=== PATIENT | male | born 1955 | race Caucasian/White ===

== ENCOUNTER 2018-07-30 18:36 | Inpatient (IN) | payer BC, OTHER ==
[~2018-07-30] VITALS: Ht 188 cm; Wt 102.1 kg
--- NOTE | 2018-07-30 20:45 | NUR ---
Pre-admission note Patient is a 62 year old male here at [facility] for medically supervised ETOH and Opiate withdrawal. Patient is alert oriented x4, he is ambulatory with a steady gait. Patient is depressed, withdrawn and anxious. Patient is currently not presenting with any withdrawal symptoms; and denies being intoxicated. Patient reports using ETOH and [place]. Patient has a medical history of anxiety, Hypertension, and sleep apnea. Initial vital signs: BP 121/78, P96, RR18, O2 sat 96% on RA, T 98.0. Patient denies pain, breathing is even and unlabored. Will continue plan of care upon arrival on unit.
--- NOTE | 2018-07-30 21:00 | NUR ---
Admission Note Patient is a 62 year old male admitted today 07/30/2018 at 2055. Patient is AOx4, he is here at [facility] for medically supervised ETOH and Opiate withdrawal. Patient provided UA at intake office. Patient reports last using ETOH today 07/30/2018 at 1700 for 187 ml PO, and he also used Norcos today 07/30/2018 at 1200 for 15 mg (2 tablets of 7.5 mg) PO. Patient has a past medical history of anxiety, Hypertension, and sleep apnea. He is currently on Metoprolol, Niacin, Paroxetine, and low dose of aspirin. Medication has been reconciled on [employer]. Patient also uses a CPAP at home for the past 3 years at night to go to sleep. Patient denies being intoxicated and also denies withdrawal symptoms. Pt stated I will start to experience withdrawal symptoms in about 6 more hours. Patient seemed depressed, anxious, withdrawn and flat affect. CIWA and COWS assessment were deferred and will be further assessed when withdrawal symptoms are present. Patient is a full code and has no known allergies. Patient follows a regular diet at home. Patient reports his typical withdrawal symptoms consist of: "I get the shakes, weakness on legs, hot and cold flashes, and sweats." Patient denies seizures hx, cardiac induced complications, black outs, overdoses and withdrawal induced delirium. He has never been on a 5150 and does not smokes cigarettes. 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 Patient said he has been drinking since he was 23 years old. Patient stated his last drink was today 07/30/2018. 2) Jean: Patient stated he was using 4 tablets=30 mg (7.5 mg tablet) PO daily for 2 months. He started using 2 months ago. Patient stated that his last use was today 07/30/2018 at 1200. Patient stated that he has never been to a treatment center. He has tried to get sober on his own but has only been able to stay sober for 7 days and goes back to drinking, he has had very limited success. He doesn't remember his most recent period of sobriety. Patient is under the care of physician Dr. Gabino Fuentes in [facility]. Patient provided family hx of substance use; he stated that his father and brother were alcoholics. Patient support system is his and his son. Patient is currently employed as a water plant maintenance mechanic for the [employer] and his highest level of education is high school diploma. When the patient was asked whats going to be different this time, he stated "I am tired of feeling like crap and hiding it away, I want a normal life." Patient has never faced legal consequences as a result of his drug use, he stated Im a smart alcoholic I dont drink and drive, and I dont want to get to that point. Patient stated the reason he drink is due to boredom, and it is an escape from reality. Patient is 62" and weights 225 lbs per standing scale. Patient's skin is intact, dry, and warm to touch. Capillary refill is <3 seconds. PERRLA is present with pupils at 4 mm bilaterally. Lungs are clear to auscultation bilaterally. Abdomen is soft and non-distended and bowel sounds are present in all 4 quadrants. Patient reports that his last bowel movement was today 07/2018. Initial vital signs are as follows: BP 121/78, P96, RR18, O2 sat 96% on RA, T 98.0. Patient denies pain, breathing is even and unlabored. No signs and symptoms of respiratory distress. Patient stated he uses a CPAP for sleep and will follow up with MD for orders. Patient was oriented to unit at 2054. Patient was provided instructions regarding unit policies and rules. He provided a urine sample at intake office and blood work will be collected on unit. Fall and seizure precautions initiated and maintained. Safety measures in place, bed in low and locked position, side rails up x2, and call light within reach. Will continue to monitor.
[2018-07-30] MEDS ORDERED: SRC ALCOHOL WITHDRAWAL ADMITTING PROTOCOL XX PRN (22:45)
[2018-07-30] MEDS ORDERED: LOPERAMIDE HCL 2 MG CAPSULE PO PRN ×2 (22:45)
[2018-07-30] MEDS ORDERED: THIAMINE HCL 200 MG/2 ML VIAL IM ONE (22:45)
[2018-07-30] MEDS ORDERED: MAG HYDROX/AL HYDROX/SIMETH 30 ML LIQUID UDC PO PRN (22:45)
[2018-07-30] MEDS ORDERED: MAGNESIUM HYDROXIDE 30 ML LIQUID UDC PO PRN (22:45)
[2018-07-30] MEDS ORDERED: LORAZEPAM 1 MG TABLET PO PRN ×2 (22:45)
[2018-07-30] MEDS ORDERED: SRC OPIOID WITHDRAWAL ADMITTING PROTOCOL XX PRN (22:45)
[2018-07-30] MEDS ORDERED: LORAZEPAM 2 MG/1 ML VIAL IM PRN (22:45)
[2018-07-30] MEDS ORDERED: ONDANSETRON ODT 4 MG TAB.RAPDIS SL PRN (22:45)
[2018-07-30] MEDS ORDERED: MIRALAX 17 GM POWD.PACK PO PRN (22:45)
[2018-07-30] MEDS ORDERED: BUPRENORPHINE HCL 2 MG TAB.SUBL SL PRN (22:45)
[2018-07-30] MEDS ORDERED: ONDANSETRON 4 MG/2 ML VIAL IM PRN (22:45)
[2018-07-30] MEDS ORDERED: NIAC500T2 PO (22:49)
[2018-07-30] MEDS ORDERED: ASPI81TA31 PO (22:49)
[2018-07-30] MEDS ORDERED: METO1TAB39 PO (22:49)
[2018-07-30] MEDS ORDERED: PANT40TA4 PO (22:49)
[2018-07-30] MEDS ORDERED: PARO10TA86 PO (22:49)
[2018-07-30 23:02] LABS: BASOPHILS # (AUTO) 0.1 K/uL (0.0-8.0); BASOPHILS % (AUTO) 1.2 % (0.0-2.0); EOSINOPHILS # (AUTO) 0.1 K/uL (0.0-0.7); HEMATOCRIT 46.2 % (36.7-47.1); HEMOGLOBIN 16.5 g/dL (12.5-16.3); LYMPHOCYTES % (AUTO) 34.6 % (20.5-51.5); MEAN CORPUSCULAR HEMOGLOBIN 35.2 uug (23.8-33.4); MEAN CORPUSCULAR HGB CONC 36 g/dL (32.5-36.3); MEAN CORPUSCULAR VOLUME 98.7 fL (73.0-96.2); MONOCYTES # (AUTO) 0.7 K/uL (2.0-10.0); MONOCYTES % (AUTO) 8.2 % (0.0-11.0); NEUTROPHILS # (AUTO) 4.8 K/uL (1.8-8.9); PLATELET COUNT (AUTO) 204 K/uL (152-348); RED BLOOD CELL COUNT(AUTO) 4.68 MIL/uL (4.06-5.63); WHITE BLOOD COUNT (AUTO) 8.7 K/uL (3.6-10.2)
[2018-07-30 23:55] LABS: *AMPHETAMINE, URINE NEGATIVE (NEGATIVE); *BARBITURATE, URINE NEGATIVE (NEGATIVE); *CANNABINOID, URINE POSITIVE (NEGATIVE); *COCCAINE, URINE NEGATIVE (NEGATIVE); *OPIATE, URINE NEGATIVE (NEGATIVE); *PHENCYCLIDINE SCREEN,URINE NEGATIVE (NEGATIVE)
--- NOTE | 2018-07-31 | NUR ---
COWS and CIWA Deferred Patient noted in bed resting with eyes closed, breathing is even and unlabored. Per protocol COWS and CIWA is to be assessed while patient is awake. Will continue to monitor.
[2018-07-31 00:02] LABS: BILIRUBIN,TOTAL 2.7 mg/dL (0.2-1.0); CREATININE 1.4 mg/dL (0.6-1.3); MAGNESIUM 1.8 mg/dL (1.8-2.4); POTASSIUM 2.9 mmol/L (3.5-5.1); TOTAL PROTEIN, SERUM 8.4 g/dL (6.4-8.2)
[2018-07-31 00:13] LABS: THYROID STIMULATING HORMONE 1.791 mIU/mL (0.358-3.740)
[2018-07-31] MEDS ORDERED: POTASSIUM CHLORIDE 20 MEQ TAB.PRT.SR PO ONE ×2 (00:15→09:00)
--- NOTE | 2018-07-31 00:19 | NUR ---
PLACED PATIENT ON CPAP PER MD ORDERS AND PATIENTS REQUEST. PATIENT SAYS HE HAS OWN CPAP [facility] BUT CAN'T USE IT HERE. PATIENT SAYS HE'S ON 21% WHEN USING CPAP AT HOME. PATIENT IS ON A FULL FACE MASK. SETTINGS ARE: CPAP 8, 21%. NO SOB NOTED AT THIS TIME. PATIENT SAYS HE IS COMFORTABLE. WILL CONTINUE TO MONITOR.
[2018-07-31 04:00] VITALS: BP 126/82
--- NOTE | 2018-07-31 05:00 | NUR ---
K Critical Value and late Med administration Patient's potassium lab is showing 2.9; charge nurse and MD aware, new order for K-dur 40 MEQ was ordered. Administered late because patient was asleep. Patient tolerated well and will continue to monitor.
--- NOTE | 2018-07-31 07:16 | NUR ---
End of shift note Patient is 62 year old male admitted on 07/30/2018; he is here for medically supervised ETOH and Opiate withdrawal. Patient is on fall and seizure precautions. Orders are still pending for taper. Patient did not have any PRN during this shift. Patient was on a CPAP for sleep apnea, respiratory therapist came up and connected the patient to the CPAP. Patient had a critical lab value of K 2.9, was replaced with a onetime order of K-dur 40Meq. Patients CIWA and COWS were deferred because patient was asleep and was not presenting with no withdrawal symptoms. Patient slept for 7 hours and had a total intake of 500 ml. Patient voided x1 and had no bowel movements during this shift. Safety measures in place, bed locked in lowest position, side rails up x2, and call light within reach. Will endorse to day shift.
--- NOTE | 2018-07-31 07:19 | NUR ---
Start of shift Report received Patient is 62 year old male admitted on 07/30/2018 for medically supervised ETOH and Opiate withdrawal. Pt is currently not on a taper but has PRN medication in case of withdrawals, Pt is in room laying down with eyes closed resting with even non-labored breathing. Pt is on a CPAP machine for sleep apnea, Respiratory therapist came up and set up the machine. Pts CIWA and COWS was deferred last night due to pt being intoxicated. Pt potassium was low at 2.9 for which MD ordered 40meq of K-Dur. pt currently c/o anxiety shakes and sweats. encouraged pt to drink plenty of water to help with detox process. All safety measures in place will continue to monitor.
[2018-07-31 08:00] VITALS: BP 130/80
--- NOTE | 2018-07-31 08:00 | NUR ---
[facility] 14 COWS 14 Patient presents with lethargy,fatigue,fine hand tremors,restlessness and diaphoresis and irritability
[2018-07-31] MEDS ORDERED: TUBERCULIN,PURIF.PROT.DERIV. 5 TU/0.1 ML TEST ID ONE (09:00)
[2018-07-31] MEDS: THIAMINE HCL 100 MG TABLET PO SCH (09:41)
[2018-07-31] MEDS: FOLIC ACID 1 MG TABLET PO SCH (09:41)
[2018-07-31] MEDS: MULTIVITAMINS,THERAPEUTIC TABLET PO SCH (09:41)
--- NOTE | 2018-07-31 09:42 | NUR ---
PRN MEDICATION Pt c/o anxiety, chills, sweats, presented with flushed face, agitation, emotional volatility, and tremors. pts CIWA and COWS scores were 14 per MD order pt received PRN Ativan 1mg PO and Subutex 4mg Sub lingual. will continue to monitor pt.
--- NOTE | 2018-07-31 10:42 | NUR ---
PRN reassessment Medication effective pt reported a decrease in anxiety and agitation, presented to be more calm, pt no longer had a flushed face or notable tremors. CIWA and COWS scores decreased to 13
[2018-07-31 12:00] VITALS: BP 124/86
--- NOTE | 2018-07-31 12:00 | NUR ---
[facility] 11 COWS 12 Patient presents with lethargy,fatigue,fine hand tremors,restlessness and diaphoresis and irritability
[2018-07-31] MEDS: METOPROLOL 50 MG PO SCH (13:15)
[2018-07-31] MEDS ORDERED: 3 DAY TAPER BUPRENORPHINE -SERENITY PROTOCOL SL PRN (13:30)
[2018-07-31] MEDS ORDERED: 4 DAY TAPER OF LORAZEPAM -SERENITY PROTOCOL PO PRN (13:30)
[2018-07-31] MEDS: PANTOPRAZOLE SODIUM 40 MG TABLET.DR PO SCH (14:32)
[2018-07-31] MEDS: ASPIRIN 81 MG TAB.CHEW PO SCH ×2 (14:32→21:22)
[2018-07-31] MEDS: LORAZEPAM 1 MG TABLET PO SCH ×3 (14:32→21:21)
[2018-07-31] MEDS ORDERED: WITC1MED TP (14:34)
[2018-07-31 15:13] LABS: BILIRUBIN,TOTAL 2.3 mg/dL (0.2-1.0); CREATININE 1.1 mg/dL (0.6-1.3); MAGNESIUM 1.8 mg/dL (1.8-2.4); POTASSIUM 3.9 mmol/L (3.5-5.1); TOTAL PROTEIN, SERUM 7.5 g/dL (6.4-8.2)
--- NOTE | 2018-07-31 15:13 | NUR ---
Therapist prompted client to attend group therapy.
[2018-07-31] MEDS ORDERED: METO50TA7 PO (15:35)
[2018-07-31 16:00] VITALS: BP 128/87
[2018-07-31] MEDS: BUPRENORPHINE HCL 2 MG TAB.SUBL SL SCH ×2 (17:51→21:22)
--- NOTE | 2018-07-31 19:14 | NUR ---
End of shift Report given to car shifter nurse plan of care followed vital signs monitored closely Q4H. Withdrawal symptoms were closely monitored, medication given as scheduled. Initial CIWA 14 COWS 14. Pt encouraged adequate PO fluid intake as tolerated. Pt presented with sweats, flushed face, anxiety some agitation and yawning during the day. Pt received the scheduled taper medication as ordered. Pt received PRN Ativan 1mg and Subutex 4mg for withdrawals and COWS and CIWA score of 14. Last CIWA 11 COWS 12. Pt reported that the taper medications have been working well at controlling the withdrawal symptoms. Pt ate all of the meals, pt attended all groups and activities to learn new coping skills to prevent relapse. Pt denied any SI/HI. All safety measures in place, bed in lowest locked position, call light within reach. All needs met and attended.
--- NOTE | 2018-07-31 19:30 | NUR ---
Start of shift note Patient is a 62 year old male admitted on 07/30/2018. Patient id here for ETOH and Opiate withdrawal. Patient is on a 4 day Ativan and a 3 day Subutex taper. Patient is on fall and seizure precautions. Patients last CIWA was 11 and COWS was 12. Per endorsement patient had PRN Subutex and Ativan. Patient had a low K value and was given a onetime order of K-dur 40 Meq and K value is back to normal 3.9. Pt uses a CPAP at night. Upon rounds patient was noted in room watching tv, explained plan of care and medication administration and he verbalized understanding. Pt stated he did not want the CPAP for tonight because he was unable to sleep the night before and the face mask was not his size. Education was given about the CPAP and he refused it. Breathing is even and unlabored with no signs of acute distress. Safety measures in place bed locked in lowest position, side rails up x2, and call light within reach will continue to monitor.
[2018-07-31 20:00] VITALS: BP 132/82
--- NOTE | 2018-07-31 20:00 | NUR ---
CIWA and COWS Assessment Patient is presenting tremors, anxiety, agitation, and sweats. Patient CIWA is 12 and COWS is 13. Safety measures in place will continue to monitor.
[2018-07-31] MEDS: diphenhydrAMINE 50 MG CAPSULE PO PRN (21:22)
[2018-07-31] MEDS: HYDROXYZINE PAMOATE 25 MG CAPSULE PO PRN (21:22)
--- NOTE | 2018-07-31 21:22 | NUR ---
PRN Vistaril and Benadryl Patient is reporting anxiety and difficultly sleeping. Administered PRN Vistaril and Benadryl and pt tolerated well. Safety measures in place and will continue to monitor.
[2018-07-31] MEDS: NIACIN 500 MG PO SCH (21:23)
--- NOTE | 2018-07-31 22:22 | NUR ---
PRN Vistaril and Benadryl Reassessment Patient is resting in bed with eyes closed, and lights off. Medication is note to be effective. Breathing is even and unlabored. Safety measures in place and will continue to monitor.
[2018-08-01] VITALS: BP 128/79
--- NOTE | 2018-08-01 | NUR ---
CIWA and COWS Deferred Patient was in bed resting with eyes closed, breathing even and unlabored. Per protocol CIWA and COWS is to be assessed while patient is awake. Safety measures in place, will continue to monitor.
[2018-08-01 04:00] VITALS: BP 121/81
[2018-08-01 06:06] LABS: HEPATITIS B SURFACE AG Negative (Negative)
--- NOTE | 2018-08-01 07:30 | NUR ---
End of shift note Patient is a 62 year old male admitted on 07/30/2018. Patient id here for ETOH and Opiate withdrawal. Patient is on a 4 day Ativan and a 3 day Subutex taper. Patient is on fall and seizure precautions. Patients last CIWA was 12 and COWS was 13. Patient had PRN Vistaril and Benadryl during this shift. Pt did not use the CPAP during this shift, he refused it because he said the alarm and the pressure did not allow him to sleep well the night well. Patient slept for 10 hours and had a total intake of 1,000ml. Patient voided x1 and had no bowel movements. Breathing is even and unlabored with no signs of acute distress. Safety measures in place bed locked in lowest position, side rails up x2, and call light within reach. Will endorse to day shift.
--- NOTE | 2018-08-01 07:40 | NUR ---
START OF SHIFT Endorse rcvd from ongoing nurse, client is is room, lying on his L side, he sounds asleep, easy to awaken, RR 14 even, non-labored. Last CIWA @ 1999. PRN Vistaril 50mg PO for anxiety, Benadryl 50mg for insomnia, client slept 8hrs. [place] precautions. Call light within reach. Will continue to monitor. Addendum: 08/01/18 at 1739 by PORTIA LAZARO RN wrong client
--- NOTE | 2018-08-01 07:40 | NUR ---
START OF SHIFT Endorse rcvd from ongoing nurse, client is is room, he sounds asleep, easy to awaken, RR 14 even, non-labored. CPAP is at bedside. Last CIWA 13 @ 1999. PRN Vistaril 50mg PO for anxiety, Benadryl 50mg for insomnia, client slept 10hrs. [place] precautions. Call light within reach. Will continue to monitor.
--- NOTE | 2018-08-01 08:24 | NUR ---
Therapist prompted client to attend group therapy sessions.
[2018-08-01 08:30] VITALS: BP 153/94
[2018-08-01] MEDS: ACETAMINOPHEN 325 MG TABLET PO PRN (08:36)
[2018-08-01] MEDS: BUPRENORPHINE HCL 2 MG TAB.SUBL SL SCH ×3 (08:36→20:21)
[2018-08-01] MEDS: IBUPROFEN 600 MG TABLET PO PRN (08:36)
[2018-08-01] MEDS: PANTOPRAZOLE SODIUM 40 MG TABLET.DR PO SCH (08:37)
[2018-08-01] MEDS: THIAMINE HCL 100 MG TABLET PO SCH (08:37)
[2018-08-01] MEDS: MULTIVITAMINS,THERAPEUTIC TABLET PO SCH (08:37)
[2018-08-01] MEDS: LORAZEPAM 1 MG TABLET PO SCH ×3 (08:37→20:19)
[2018-08-01] MEDS: FOLIC ACID 1 MG TABLET PO SCH (08:37)
--- NOTE | 2018-08-01 08:37 | NUR ---
CIWA 12 / 13 & PRN Tylenol 650mg PO, Motrin 600mg PO for chronic low back pain 02/17. Client is a/o x 4, he presents with anxious mood, flat affect, avoidant gaze, flushed facial face, tremors, clammy skin, goosebump, and restlessness. Client reports anxiety, agitation, irritability, and fatigue. Schedule Ativan 1mg PO, Subutex 2mg SL administered. Call light within reach.
[2018-08-01] MEDS: [UNRECOGNIZED DRUG - OTHER] TOP PRN (08:38)
[2018-08-01] MEDS: CLONIDINE HCL 0.1 MG TABLET PO PRN (08:38)
[2018-08-01] MEDS: METOPROLOL 50 MG PO SCH (08:38)
--- NOTE | 2018-08-01 08:38 | NUR ---
PRN Hemorrhoid preparation H TOP PRN clonidine 0.1mg PO for anxiety, agitation mb increased BP 153/94. Call light within reach.
--- NOTE | 2018-08-01 09:37 | NUR ---
Reassess PRN Tylenol 650mg PO, Motrin 600mg, client reports slight relief from chronic low back pain 3/10, but tolerable. Call light within reach.
--- NOTE | 2018-08-01 09:38 | NUR ---
Reassess PRN clonidine 0.1mg, client reports slight relief from anxiety and agitation, BP 138/82. Call light within reach.
[2018-08-01 12:33] VITALS: BP 116/81
[2018-08-01] MEDS: METHOCARBAMOL 750 MG TABLET PO PRN (12:46)
--- NOTE | 2018-08-01 12:46 | NUR ---
CIWA 11 / COWS 12 & PRN Robaxin 750mg PO for myalgia on lower back. Client with clammy skin, tremulous, anxious, yawning, runny nose, and restless. He complains of chills, myalgia, nausea and fatigue. Will continue to monitor, support and encourage according to plan of care.
--- NOTE | 2018-08-01 13:46 | NUR ---
Reassess PRN Robaxin 750mg, client reports slight relief from myalgia on lower back. Call light within reach.
--- NOTE | 2018-08-01 15:36 | NUR ---
CIWA 11 / 12 Client continue to present with anxiety, irritability, clammy skin, tremulous, yawning, runny nose, restless, chills, myalgia, and fatigue. Schedule Subutex 2mg SL, Ativan 1mg PO administered. Call light within reach.
[2018-08-01 16:37] VITALS: BP 126/85
--- NOTE | 2018-08-01 19:06 | NUR ---
END OF SHIFT Endorse client to incoming nurse, client is in room, a/o x 4. Client continues to present with anxiety, irritability, clammy skin, tremulous, yawning, runny nose, restless, chills, myalgia, and fatigue. Client is on 2nd of 4 day Ativan / 3 day Subutex taper. Last CIWA 12 @ 1600. PRN medications administered and noted per protocol. Client attends 2/3 of group therapy. Client consumed 50-75% of meals. Adequate PO fluid intake 2375mL, void x 4, stool x 1. [place] precautions. Call light within reach.
[2018-08-01 20:00] VITALS: BP 125/79
--- NOTE | 2018-08-01 20:00 | NUR ---
Start of Shift Pt is a 62 year old male admitted for ETOH and opiate withdrawal. Pt is placed on a 4 day Ativan and 3 Subutex taper. Upon assessment, pt presents in room, in bed listening to music. Pt reports s/s of anxiety, irritability, restlessness, fatigue, muscle aches/joint aches, skin noted to be clammy, tremors felt upon touch, skin flushed - COWS 11 and CIWA 10. Medications are due, safety measures in place, will continue to monitor.
[2018-08-01] MEDS: NIACIN 500 MG PO SCH (20:19)
[2018-08-01] MEDS: ASPIRIN 81 MG TAB.CHEW PO SCH (20:20)
[2018-08-01] MEDS: HYDROXYZINE PAMOATE 25 MG CAPSULE PO PRN (23:11)
[2018-08-01] MEDS: diphenhydrAMINE 50 MG CAPSULE PO PRN (23:11)
--- NOTE | 2018-08-01 23:11 | NUR ---
PRN Administration Pt reports anxiety and requests sleeping aid. Vistaril 50mg PRN and Benadryl 50mg PRN administered. Safety measures in place, will continue to monitor.
[2018-08-02] VITALS: BP 134/89
--- NOTE | 2018-08-02 00:11 | NUR ---
PRN Reassessment Upon reassessment, pt is in room in bed, watching television. Pt states, "I'm just not tired yet, I just want to watch TV for now. needs met, safety measures in place, will continue to monitor.
--- NOTE | 2018-08-02 00:20 | NUR ---
COWS/CIWA Assessment COWS 10 & CIWA 11 - Pt reports feeling anxious, skin is clammy and flushed. pt is unable to remain still in bed, is seen "fixing the remote". Pt often walks out of room to walk in the [place] ways. Pt states, "Walking helps me not to think about everything". Clonidine 0.1mg PRN administered. Safety measures in place, will continue to monitor.
[2018-08-02] MEDS: CLONIDINE HCL 0.1 MG TABLET PO PRN ×2 (00:56→12:17)
--- NOTE | 2018-08-02 01:20 | NUR ---
Patient Reassessment PT is seen in bed, eyes closed noted to be sleeping, resp even/unlabored. Clonidine effective. Safety measures in place, will continue to monitor.
[2018-08-02 04:00] VITALS: BP 117/84
--- NOTE | 2018-08-02 04:00 | NUR ---
Confusion Episode - CIWA Assessment - Ativan x1 Administration Pt awoke from sleep, presented the nurses station and stated, "Why was my here yesterday?" Pt was redirected. Upon asking if pt was aware of where he was, pt attempted to remember, but then stated, "No, remind me. Why am I here". Pt was redirected regarding where he was, why he was in detox, and how many days he was at [facility]. Pt responded with, "Okay, if the ANASTASIA or ELVIRA ask, direct them to my room". CIWA 18, Ativan 2mg PO x1 administered. Safety measures in place, will continue to monitor.
[2018-08-02] MEDS ORDERED: LORAZEPAM 1 MG TABLET PO ONE ×2 (05:00→11:45)
--- NOTE | 2018-08-02 05:00 | NUR ---
Ativan 2mg x1 Reassessment Upon reassessment of Ativan 2mg x1, pt states, "Well I'm starting to remember certain things. I just can't believe I woke up so confused". CIWA 14. Pt reassured, comfort measures provided, needs met, safety measures in place, will continue to monitor.
--- NOTE | 2018-08-02 05:30 | NUR ---
Patient Update Pt was seen packing his clothing. When asked his reason behind packing his belongings, pt stated, "Im getting ready leave. They're going to pick me up in the afternoon". Pt was redirected and oriented to his plan of care at [facility]. Pt was reminded that he was not being discharged today and that treatment is still ongoing. Pt states, "My goodness, well that's more info then I had a moment ago". Pt apologized and stated, "Okay, I'm going to chill now. Pt is redirectable.
--- NOTE | 2018-08-02 07:05 | NUR ---
End of Shift Pt is a 62 year old male admitted for ETOH and opiate withdrawal. Pt is placed on a 4 day Ativan and 3 Subutex taper. During shift, pt presented with anxiety, irritability, restlessness, fatigue, muscle aches/joint aches, skin noted to be clammy, tremors felt upon touch, skin flushed - scheduled taper medications administered. Latest COWS 10 and CIWA 14. Vistaril PRN, Benadryl PRN and Clonidine PRN administered. At 0400, Ativan 2mg PO x1 administered for episode of confusion. Pt has episodes of confusion, but is redirectable. PT has CPAP and SCD pump in room. Amylase, Lipase, BMP and Liver function test to be drawn in AM. Pt slept for 3 hrs, intake of 2200 ml PO, and voids x4. Safety measures in place, endorsed to day shift nurse.
--- NOTE | 2018-08-02 07:30 | NUR ---
START OF SHIFT Endorse rcvd from ongoing nurse, client is in bed, he is a/o to name, place and situation. Client presents with anxious mood, flat affect, tremors felt, clammy skin, dilated pupil, flushed facial face, and difficulty concentrating. Client reports generalized body aches, sweats, inability to sleep, and fatigue. He stated, "Last night, I got confused, I was thinking that I was in my house and I tried to go into another patient's room looking for my bathroom." Client denies any visual/auditory or tactile hallucinations. Last CIWA . PRN Vistaril 50mg PO for anxiety, Benadryl 50mg PO for asleep, Clonidine 0.1mg PO for agitation. One time Ativan 2mg PO administered for episode of confusion. CPAP at bedside. AST 203, ALT 124, CN made aware. Client slept 3 hrs. Call light within reach.
[2018-08-02 08:01] LABS: BILIRUBIN,TOTAL 1.7 mg/dL (0.2-1.0); CREATININE 1.2 mg/dL (0.6-1.3); TOTAL PROTEIN, SERUM 7.3 g/dL (6.4-8.2)
[2018-08-02] MEDS: THIAMINE HCL 100 MG TABLET PO SCH (08:33)
[2018-08-02] MEDS: FOLIC ACID 1 MG TABLET PO SCH (08:33)
[2018-08-02] MEDS: PANTOPRAZOLE SODIUM 40 MG TABLET.DR PO SCH (08:33)
[2018-08-02] MEDS: METOPROLOL 50 MG PO SCH (08:33)
--- NOTE | 2018-08-02 08:33 | NUR ---
CIWA / 12 Client presents with anxious mood, flushed facial face, enlarged pupils, distant gaze, flat affect, tremors felt, and difficulty concentrating. Client is denied any visual/auditory/tactile hallucinations. Client is a/o to name, place and situation. Schedule Ativan 1mg PO, Subutex 2mg SL administered. Call light within reach.
[2018-08-02] MEDS: MULTIVITAMINS,THERAPEUTIC TABLET PO SCH (08:34)
[2018-08-02 08:39] VITALS: BP 125/86
[2018-08-02] MEDS ORDERED: LORAZEPAM 1 MG TABLET PO SCH (09:00)
[2018-08-02] MEDS ORDERED: BUPRENORPHINE HCL 2 MG TAB.SUBL SL SCH (09:00)
--- NOTE | 2018-08-02 10:55 | NUR ---
Therapist prompted client to attend group therapy.
[2018-08-02] MEDS: QUETIAPINE FUMARATE 25 MG TABLET PO PRN ×2 (12:02→20:07)
--- NOTE | 2018-08-02 12:02 | NUR ---
PRN Seroquel 50mg PO for agitation, m/b pacing, restlessness. Call light within reach.
[2018-08-02] MEDS: PAROXETINE HCL 10 MG TABLET PO SCH (12:17)
--- NOTE | 2018-08-02 12:17 | NUR ---
PRN Clonidine 0.1mg PO for BP 151/101. Call light within reach.
[2018-08-02 12:35] VITALS: BP 151/101
--- NOTE | 2018-08-02 12:37 | NUR ---
CIWA 18 / COWS 16 & PRN Ativan 2mg administered for inability to stay still, restlessness, anxiety, agitation, irritability, and difficulty concentrating. Client stated, "Tell the police stenographer that I'll be ready in a little bit, I'm putting my clothes in the bad." Client noted to repeatedly get out of his room and go into empty room next to his to look for his bathroom. Redirect client to present situation. Call light within reach. Sitter at bedside promoting safety.
[2018-08-02] MEDS ORDERED: LORAZEPAM 1 MG TABLET PO PRN (13:00)
[2018-08-02] MEDS ORDERED: 3 DAY TAPER OF LORAZEPAM -SERENITY PROTOCOL PO PRN (13:00)
--- NOTE | 2018-08-02 13:02 | NUR ---
Reassess PRN Seroquel 50mg, so significant change noted, client continues to be agitated and restless. Call light within reach.
--- NOTE | 2018-08-02 13:17 | NUR ---
Reassess PRN Clonidine 0.1mg, BP 137/88, P 97. Call light within reach.
--- NOTE | 2018-08-02 13:37 | NUR ---
Reassess PRN Ativan 2mg, client is in bed, eyes closed, sounds asleep, easy to awaken, RR 16 non-labored. Call light within reach. Sitter at bedside promoting safety.
[2018-08-02] MEDS: LORAZEPAM 1 MG TABLET PO SCH ×2 (14:17→20:07)
[2018-08-02] MEDS: METHOCARBAMOL 750 MG TABLET PO PRN (15:53)
[2018-08-02] MEDS: IBUPROFEN 600 MG TABLET PO PRN (15:53)
[2018-08-02] MEDS: LORAZEPAM 1 MG TABLET PO PRN ×3 (15:53→23:52)
--- NOTE | 2018-08-02 15:53 | NUR ---
[facility] 18 / COWS 16 Client is a/o person and situation, he presents with anxious mood, irritability, agitation, restlessness, tremors felt, emotional volatility, difficulty concentrating, and difficulty thinking clearly. Call light within reach. Sitter at bedside promoting safety.
--- NOTE | 2018-08-02 15:54 | NUR ---
PRN Ativan 2mg PO for anxiety, irritability, agitation, restlessness, tremors felt, emotional volatility, difficulty concentrating, and difficulty thinking clearly. PRN Robaxin 750mg PO & Motrin 600mg PO for myalgia and pain 6/10 on lower back. Call light within reach. Sitter at bedside promoting safety.
[2018-08-02 16:01] VITALS: BP 123/95
--- NOTE | 2018-08-02 16:54 | NUR ---
Reassess PRN Ativan 2mg, CIWA 15, slight difference noted on client's level of anxiety, irritability, agitation, restlessness, emotional volatility, difficulty concentrating, and difficulty thinking clearly. Reassess PRN Robaxin 750mg & Motrin 600m, client reports relief from myalgia and pain 0/10 on lower back. Call light within reach. Sitter at bedside promoting safety.
[2018-08-02] MEDS ORDERED: DIAZEPAM 10 MG TABLET PO ONE (18:15)
--- NOTE | 2018-08-02 18:18 | NUR ---
One time Valium 20mg PO administered for anxiety, agitation, restlessness, inability to stay still, emotional volatility, tremors, flushed facial skin, and difficulty concentrating. Client is a/o to person, place and situation. Call light within reach. Sitter at bedside promoting safety.
--- NOTE | 2018-08-02 19:25 | NUR ---
END OF SHIFT & Reassess One time Valium 20mg Endorse client to incoming nurse, client is in room, a/o to person and situation. Reassess of One time Valium 20mg, client continues to present with anxiety, agitation, restlessness, emotional volatility, tremors, flushed facial skin, and difficulty concentrating. On 1:1 sitter promoting safety. Client is on an extended 6 day Ativan taper (day 3rd) and 3 day Subutex taper. Last CI / 16 @ 1600. PRN medications administered and noted per protocol. Client attended 1/3 of group therapy. Client consumed 50-75% of meals. Adequate PO fluid intake 1700mL, void x 4, stool x 1. [place] precautions. Call light within reach.
--- NOTE | 2018-08-02 19:30 | NUR ---
START OF SHIFT Pt is a 62 y/o male admitted on 07/30/18 for ETOH and opiate withdrawal. Pt finished a 3 day Subutex taper and Ativan taper got extended to 5 days. Pt has PRN Ativan available. Last CIWA 18 and COWS 16 and PRN Clonidine, Motrin, Robaxin, Tylenol, Ativan 2 mg administered during day shift. Upon assessment pt presents with anxiety, agitation, confusion, disorientation to time, restlessness, emotional volatility, elevated HR, stuffy nose, sweats, stomach cramps, nausea, yawning, poor eye contact, unkempt room. Pt refusing CPAP for sleep apnea tonight and refusing Zofran for nausea. Pt also complaining of lower back pain 01/17. 1:1 sitter at bedside for safety. Medications due. Safety measures in place. Call light within reach. Will continue to monitor.
[2018-08-02 20:00] VITALS: BP 103/78
--- NOTE | 2018-08-02 20:00 | NUR ---
COWS/CIWA ASSESSMENT CIWA 18 and COWS 12. Pt presents with anxiety, agitation, confusion, disorientation to time, restlessness, emotional volatility, elevated HR, stuffy nose, sweats, stomach cramps, nausea, yawning, poor eye contact, unkempt room. Pt able to respond appropriately to questions. Pt denying A/V hallucinations upon assessment, but tech in room for 1:1 states that he talks to himself intermittently. Pt complaining of lower back pain especially upon exertion. Pt refusing Zofran or Bentyl for GI discomfort and states, "It's not that bad."
[2018-08-02] MEDS: ACETAMINOPHEN 325 MG TABLET PO PRN (20:07)
[2018-08-02] MEDS: NIACIN 500 MG PO SCH (20:07)
[2018-08-02] MEDS: ASPIRIN 81 MG TAB.CHEW PO SCH (20:07)
--- NOTE | 2018-08-02 20:07 | NUR ---
PRN SEROQUEL AND TYLENOL ADMINISTRATION Pt presents with anxiety, agitation, and requests sleep aid. Pt also complains of back pain 5/10. Safety measures in place. 1:1 sitter at bedside. Will continue to monitor.
--- NOTE | 2018-08-02 21:07 | NUR ---
PRN SEROQUEL AND TYLENOL REASSESSMENT Pt has persistent anxiety and is not asleep. Pt laying in bed and presents with restlessness. Pt has intermittent mumbling. Pt reports that his back still hurts "4-5 out of ten." Safety measures in place. 1:1 sitter at bedside. Will continue to monitor.
--- NOTE | 2018-08-02 21:37 | NUR ---
PRN ATIVAN 2 MG ADMINISTRATION CIWA 21. Pt presents with disorientation to place, time, and situation. Pt is confused, anxious, restless, difficulty sitting still. Pt is difficult to redirect. Pt stated, "I need to go to work right now," "I need to call [employer]," and "Who took me here in the camper?" Tech in room stated that he frequently gets out of bed, walks around room, was talking to his mother, and is frequently trying to leave room to go to work. Safety measures in place. Will continue to monitor.
--- NOTE | 2018-08-02 22:37 | NUR ---
PRN ATIVAN 2 MG REASSESSMENT Pt laying in bed with eyes closed, pt sleeping intermittently. Safety measures in place. 1:1 sitter at bedside. Will continue to monitor.
--- NOTE | 2018-08-02 23:52 | NUR ---
PRN ATIVAN 2 MG ADMINISTRATION CIWA 21. Pt presents with anxiety, increased agitation, restlessness, difficulty sitting still, emotional volatility, disorientation, confusion, intermittent auditory hallucinations. Pt frequently stating "Where am I?" and "I need to know what's going on," despite frequent orientation. Pt making frequent attempts to get out of bed and room. 1:1 sitter with patient. Will continue to monitor. Addendum: 08/03/18 at 0423 by NATY HALL RN Additional: COWS 12
[2018-08-03] VITALS: BP 121/77
--- NOTE | 2018-08-03 00:10 | NUR ---
PSYCHIATRIST COMMUNICATION Charge nurse notified psychiatrist about update in patient condition regarding increased agitation, restlessness, hallucinations and disorientation. One time order for IM Zpyrexa 5 mg ordered and PRN Seroquel 50 mg order changed from Q8H to Q6H.
[2018-08-03] MEDS ORDERED: OLANZAPINE 10 MG VIAL IM ONE (00:15)
--- NOTE | 2018-08-03 00:52 | NUR ---
PRN ATIVAN 2 MG REASSESSMENT CIWA 19. Pt presents with persistent anxiety, agitation, restlessness, confusion, and disorientation. Pt also has paranoid thoughts. Pt stating, "Where is my mom?" and "Where is [place]?" despite consistent reorientation. When asking patient a question he frequently stated, "Just give me a minute," and "For your own safety, I need you all to just give me a second." Addendum: 08/03/18 at 0117 by NATY HALL RN 1:1 sitter with patient. Will continue to monitor.
[2018-08-03] MEDS: QUETIAPINE FUMARATE 25 MG TABLET PO PRN ×2 (01:48→19:45)
--- NOTE | 2018-08-03 01:48 | NUR ---
PRN SEROQUEL ADMINISTRATION Pt presents with agitation, restlessness, inability to stay asleep. Pt continues to present with confusion and disorientation. Pt getting out of bed and walking out of room. Pt asking where his family members are. 1:1 sitter at bedside. Will continue to monitor.
--- NOTE | 2018-08-03 02:48 | NUR ---
PRN SEROQUEL REASSESSMENT Pt laying in bed with eyes closed, sleeping intermittently. Medication noted effective at this time. 1:1 sitter at bedside. Respirations even and unlabored. Safety measures in place. Call light within reach. Will continue to monitor.
[2018-08-03 04:00] VITALS: BP 117/74
--- NOTE | 2018-08-03 04:00 | NUR ---
COWS/CIWA ASSESSMENT COWS 10 AND CIWA 18. Pt presents with anxiety, agitation, restlessness, sweats, confusion, and disorientation. Pt sleeping intermittently. Safety measures in place. 1:1 sitter at bedside.
--- NOTE | 2018-08-03 07:08 | NUR ---
END OF SHIFT Pt is a 62 y/o male admitted on 07/30/18 for ETOH and opiate withdrawal. Pt finished a 3 day Subutex taper and Ativan taper got extended to 5 days. Pt has PRN Ativan available. Pt presented with anxiety, agitation, confusion, disorientation to time, auditory hallucinations, restlessness, emotional volatility, elevated HR, stuffy nose, sweats, stomach cramps, nausea, yawning, poor eye contact, poor concentration, and unkempt room. Scheduled medications and PRN Ativan 2 mg x 2, Seroquel 50 mg x 2, and Tylenol administered. Psychiatrist called when patient condition worsened; One time order for Zyprexa IM 5 mg and changed PRN Seroquel 50 mg from Q8H to Q6H. Last COWS 10 and CIWA 18 at 0400. Pt slept 4 hours. Intake 2000 ml, void x 2, stool x 2. Safety measures in place. Call light within reach. Will continue to monitor.
--- NOTE | 2018-08-03 07:30 | NUR ---
Start of shift note; Received report from night nurse. Patient is a 62 year old male admitted on 07/30/18 for ETOH/Opiate withdrawal. Patient completed Subutex taper without any adverse reaction. Patient remains on Ativan taper for ETOH withdrawal. Patient is awake, alert to name and date of , patient is unaware of location, time, date and situation. Patient is currently on 1:1 supervision for safety due to confusion. Patient received PRN Seroquel, Ativan, Seroquel and Zyprexa last night, noted to be effective. Per truss maker report patient had episodes of auditory disturbances. MD was notified. Vital signs remained WNL. Patient has a history of sleep apnea but patient refused to put on his CPAP machine, SPO2 of 95% on room air while asleep. HOB kept slightly elevated. All safety measures secured. Will continue to monitor patient.
[2018-08-03 08:00] VITALS: BP 124/81
--- NOTE | 2018-08-03 08:00 | NUR ---
COWS/CIWA Assessment; Patient is awake, alert to name and date of , patient is unaware of location, time, date and situation. Patient current COWS score is 10 and CIWA of 17 manifested by anxiety, agitation, tremors, diaphoresis, generalized discomfort, muscle aches, stomach cramps, auditory disturbances. Patient remains on 1:1 super for safety. Will closely monitor patient.
[2018-08-03] MEDS: LORAZEPAM 1 MG TABLET PO SCH ×2 (08:23→20:17)
[2018-08-03] MEDS: PANTOPRAZOLE SODIUM 40 MG TABLET.DR PO SCH (08:23)
[2018-08-03] MEDS: MULTIVITAMINS,THERAPEUTIC TABLET PO SCH (08:23)
[2018-08-03] MEDS: THIAMINE HCL 100 MG TABLET PO SCH (08:23)
[2018-08-03] MEDS: FOLIC ACID 1 MG TABLET PO SCH (08:23)
[2018-08-03] MEDS: METOPROLOL 50 MG PO SCH (08:24)
[2018-08-03] MEDS: PAROXETINE HCL 10 MG TABLET PO SCH (08:24)
[2018-08-03] MEDS ORDERED: LORAZEPAM 1 MG TABLET PO SCH (09:00)
[2018-08-03] MEDS ORDERED: LORAZEPAM 1 MG TABLET PO PRN ×3 (11:00→13:00)
[2018-08-03] MEDS: LORAZEPAM 1 MG TABLET PO PRN ×2 (11:17→17:13)
--- NOTE | 2018-08-03 11:17 | NUR ---
PRN medication; Patient's CIWA score is 17 manifested by anxiety, agitation, confusion, tremors, diaphoresis, stomach cramps, generalized discomfort. PRN Ativan 2mg PO for CIWA >16. Will continue to monitor effectiveness of medication.
[2018-08-03 12:00] VITALS: BP 119/79
--- NOTE | 2018-08-03 12:00 | NUR ---
COWS/CIWA Assessment; Patient is awake, alert to name and date of , patient is unaware of location, time, date and situation. Patient current COWS score is 10 and CIWA of 15 manifested by anxiety, agitation, tremors, diaphoresis, generalized discomfort, muscle aches, stomach cramps, auditory disturbances. Patient remains on 1:1 super for safety. Will closely monitor patient.
--- NOTE | 2018-08-03 12:17 | NUR ---
Re-assessment; Patient's current CIWA score decreased to 15 from 17. PRN Ativan noted to be effective.
[2018-08-03] MEDS: GUAIFENESIN/DEXTROMETHORPHAN 5 ML UDC PO PRN ×2 (14:07→21:54)
--- NOTE | 2018-08-03 14:07 | NUR ---
PRN medication; Patient reported cough, HOB kept elevated to prevent aspiration. PRN Robitussin DM 10 ml given for cough. Will continue to monitor patient. Sitter remained at bedside for safety.
--- NOTE | 2018-08-03 15:07 | NUR ---
Re-assessment; Patient reported improvement of cough. PRN medication is effective.
[2018-08-03 16:00] VITALS: BP 128/84
--- NOTE | 2018-08-03 17:13 | NUR ---
PRN/COWS/CIWA Assessment; Patient is awake, alert to name and date of , patient is unaware of location, time, date and situation. Re-oriented and re-directed patient as needed. Patient current COWS score is 10 and CIWA of 18 manifested by anxiety, agitation, tremors, diaphoresis, generalized discomfort, muscle aches, stomach cramps, confusion, difficulty concentrating, avoidant to eye contact. Patient remains on 1:1 super for safety. PRN Ativan 2 mg PO given for CIWA >16. Will closely monitor patient.
--- NOTE | 2018-08-03 18:13 | NUR ---
Re-assessment; Patient's CIWA score has improved, current CIWA score is 14, PRN Ativan noted to be effective.
--- NOTE | 2018-08-03 18:25 | NUR ---
End of shift note; Patient is awake, alert to name and date of , patient is disoriented to location, time, date and situation, redirected as needed. Patient remained cooperative and compliant to medication regime. Patient's last COWS score is 10 and CIWA of 14 manifested by anxiety, agitation, tremors, diaphoresis, generalized discomfort, muscle aches, stomach cramps. Patient remains on 1:1 super for safety. Patient received PRN 2 doses of Ativan for CIWA >16 and to prevent delirium tremens, noted to be effective. Patient also received PRN Robitussin DM for cough, noted to be effective. Awaiting for chest X-ray result to rule out pneumonia. All safety measures secured. Met all needs.
--- NOTE | 2018-08-03 19:15 | NUR ---
Start of shift note Received report from day shift nurse. Pt is a 62 yo male, A+Ox3, presenting to [facility] for medically supervised ETOH/Opiate withdrawal. Pt is on 1:1 sitter for observation of unsteady gait and confusion. Pt noted with confusion, anxiety, restlessness, and agitation. Pt has HX of HTN, anxiety, sleep apnea, and chronic back pain which will be monitored during shift. Pt is on 5 day Ativan and 3 day Subutex tapers, tolerated well. Respirations even and unlabored. Will continue to monitor.
[2018-08-03] MEDS: METHOCARBAMOL 750 MG TABLET PO PRN (19:45)
--- NOTE | 2018-08-03 19:45 | NUR ---
PRN Robaxin and Seroquel Pt c/o generalized muscle aches 8/10 and noted with mild agitation/psychosis. PRN Robaxin and Seroquel given and tolerated well. Will reassess within 1 HR. Will continue to monitor.
[2018-08-03 20:11] VITALS: BP 124/88
[2018-08-03] MEDS: ASPIRIN 81 MG TAB.CHEW PO SCH (20:17)
[2018-08-03] MEDS: NIACIN 500 MG PO SCH (20:17)
--- NOTE | 2018-08-03 20:40 | NUR ---
PRN Robaxin and Seroquel reassessment Medications effective. Pt expresses reduction of muscle aches to 4/10. No s/s of ASE noted at this time. Respirations even and unlabored. Will continue to monitor.
--- NOTE | 2018-08-03 21:57 | NUR ---
PRN Robitussin DM Pt noted with cough. PRN Robitussin DM given and tolerated well. Will reassess within 1 HR. Will continue to monitor.
--- NOTE | 2018-08-03 22:52 | NUR ---
PRN Robitussin DM Reassessment Medication effective. Pt is resting well in bed at this time. No s/s of ASE noted at this time. Respirations even and unlabored. Will continue to monitor.
--- NOTE | 2018-08-04 00:56 | NUR ---
V/S refused and COWS and CIWA Assessment deferred for sleep. Respirations even and unlabored. Will continue to monitor.
--- NOTE | 2018-08-04 04:55 | NUR ---
V/S refused and COWS and CIWA Assessment deferred for sleep. Respirations even and unlabored. Will continue to monitor.
--- NOTE | 2018-08-04 07:00 | NUR ---
End of shift note Pt was continuously noted with confusion, anxiety, agitation, and restlessness. Pt remains on 1:1 sitter for confusion and unsteady gait. Pt remained in room for majority of shift except to get food from kitchen. Pt remained compliant and cooperative with all aspects of treatment. Pt was given PRN Robaxin and Seroquel @194. Pt remains on 5 day Ativan and 3 day Subutex tapers, tolerated well. Pt slept for a total of 8 HRS. Last COWS: 9 and CIWA: 15 @2010. Respirations even and unlabored. Will endorse to day shift nurse.
[2018-08-04 08:00] VITALS: BP 139/74
--- NOTE | 2018-08-04 08:00 | NUR ---
Start of Shift Notes/CIWA Assessment: Received endorsement from night nurse. Patient is a 62 year old male admitted for ETOH/opiate withdrawal who was placed on a 3-day Subutex taper which he completed and continues to be on 5-day Ativan taper that was extended. He is currently on a 1:1 at this time due to intermittent confusion and hallucinations. Per night report, patient was given PRN Seroquel, Robitussin and Robaxin during the night. Last COWS 9/CIWA 15. Slept for a total of 8 hours. Patient was seen in his room. Appears drowsy upon waking. Alert and oriented x 2. Disoriented to time and place. Patient states he is "home and the year is 1987." He was noted with gross tremors, mild photosensitivity and sensitivity to sound. CIWA 15 upon this assessment. MD Sanchez in the unit and notified. Educated patient on his current plan of care for the day and his medication regimen. Encouraged oral fluid intake and encouraged group participation to learn new skills to prevent relapse. All needs met and attended. 1:1 within arm's reach. Will continue to monitor and medicate as ordered. Addendum: 08/04/18 at 0859 by LAKISHA GRIMALDO LVN COWS Assessment: Patient's COWS 6.
[2018-08-04] MEDS: MULTIVITAMINS,THERAPEUTIC TABLET PO SCH (08:33)
[2018-08-04] MEDS: FOLIC ACID 1 MG TABLET PO SCH (08:33)
[2018-08-04] MEDS: PANTOPRAZOLE SODIUM 40 MG TABLET.DR PO SCH (08:33)
[2018-08-04] MEDS: THIAMINE HCL 100 MG TABLET PO SCH (08:33)
[2018-08-04] MEDS: METOPROLOL 50 MG PO SCH (08:37)
[2018-08-04] MEDS: PAROXETINE HCL 10 MG TABLET PO SCH (08:37)
[2018-08-04] MEDS ORDERED: LORAZEPAM 1 MG TABLET PO SCH (09:00)
[2018-08-04 11:59] LABS: BILIRUBIN,DIRECT 0.8 mg/dL (0.0-0.2); BILIRUBIN,TOTAL 1.4 mg/dL (0.2-1.0); CREATININE 0.9 mg/dL (0.6-1.3); POTASSIUM 3.7 mmol/L (3.5-5.1); TOTAL PROTEIN, SERUM 6.8 g/dL (6.4-8.2)
[2018-08-04 12:00] VITALS: BP 127/89
[2018-08-04] MEDS: LORAZEPAM 1 MG TABLET PO PRN ×3 (12:21→20:54)
--- NOTE | 2018-08-04 12:21 | NUR ---
CIWA/COWS Assessment/Ativan 2 mg PO given: COWS 6, CIWA 16, patient continues to exhibit s/s of withdrawal m/b tachycardia, confusion, disorientation, unable to recall name of current president, current year and city. He was also noted with gross tremors, sweats, facial flushing, piloerection of the skin and complains of anxiety and chills and hot flashes. Medicated patient with Ativan 2 mg PO per CIWA score. Notified Dr. Sanchez. Per , continue with current orders.
--- NOTE | 2018-08-04 13:28 | NUR ---
Re-assessment: Ativan 2 mg Patient appears more calm at this time. He continues to complain of anxiety but tolerable. No chest tightness noted. Able to eat his lunch. Less agitation noted. PRN Ativan 2 mg PO effective.
--- NOTE | 2018-08-04 15:15 | NUR ---
Communication: made aware that PRN Ativan orders . New order to renew 1mg Ativan for CIWA 5-15 and 2mg Ativan for CIWA 16+. Orders noted and carried out.
[2018-08-04] MEDS ORDERED: LORAZEPAM 1 MG TABLET PO PRN (15:30)
[2018-08-04 16:00] VITALS: BP 97/84
--- NOTE | 2018-08-04 16:16 | NUR ---
COWS/CIWA Assessment/Ativan 1 mg PO given: COWS 6, CIWA 12, patient continues to present with cloudiness in his mentation, unable to do additions, but able to recall the president, his name, date of , city and hospital he is currently in. He was also noted with unsteady gait, gross tremors, requiring stand by assistance while ambulating, he was noted with anxiety, agitation and generalized discomfort. Medicated patient with Ativan 1 mg PO per CIWA score. Will monitor for effectiveness.
--- NOTE | 2018-08-04 17:16 | NUR ---
Re-assessment: Ativan 1 mg/CIWA Assessment: CIWA 10, patient continues to present with s/s of withdrawal m/b cloudiness in mentation, but able to recall current year, location but still unable to do additions. Gross tremors still noted with facial flushing. Ativan 1 mg PO effective.
--- NOTE | 2018-08-04 19:14 | NUR ---
End of Shift Notes: Patient completed his modified 5-day Ativan taper as ordered to manage symptoms related to ETOH withdrawal and opiate withdrawal. He completed his 3-day Subutex taper as ordered. No adverse reactions noted. Patient continues to be on PRN Ativan as ordered. VS monitored closely. No significant abnormalities noted. Patient is on Metoprolol as ordered. Withdrawal symptoms were closely monitored. Initial COWS 6/CIWA 15, patient presented with confusion, disorientation, photo sensitivity, sound sensitivity, paresthesia, gross tremors, anxiety, agitation, chills, hot flashes and generalized discomfort. Last COWS 11/CIWA 9. He continues to be on 1:1 for hallucination and confusion. Reality orientation provided. Seen by MD Sanchez today. Patient will be on PRN Ativan. At 1200, patients CIWA was at 16, requiring patient to be medicated with Ativan 2 mg PO as ordered. He was unable to attend group and activities due to his withdrawal symptoms. Appetite fair. Stayed in his room for most of the shift. All needs met and attended. Will continue to monitor closely.
--- NOTE | 2018-08-04 19:30 | NUR ---
START OF SHIFT Patient is a 62-year-old male admitted on 07/30/18 for ETOH and opiate withdrawal. Patient has completed a 5-day Ativan taper and a 3-day Subutex taper, tolerated well. Patients last COWS was 6 and last CIWA was 10, per endorsement. Patient currently has PRN Ativan available for further signs and symptoms of withdrawal. Patient received PRN Ativan 2mg PO and PRN Ativan 1mg PO, each once today; both noted to be effective. Upon assessment, patient remains on 1-to-1 for safety, due to unsteady gait and confusion/disorientation. Patient is oriented to his name and date, however, patient forgets the current year, his current situation/location, and other details of his circumstance. Patient is redirectable and requires constant re-orientation. Patient complains of chronic lower back pain and anxiety. Patient appears disorganized and his room is odorous. Patient is on fall and seizure precautions with not previous history of seizure. Safety measures in place, side rails up x2, bed locked in low position, 1-to-1 at bedside, call light within reach. Will continue to monitor.
[2018-08-04 20:00] VITALS: BP 123/84
--- NOTE | 2018-08-04 20:00 | NUR ---
COWS 6, CIWA 14 Patient is anxious, restless and fidgety, disoriented and confused. Patient is tremulous and complains of mild headache. Patient also has transient A/V hallucinations about his dog being on the unit or his brothers children "running around." Patient is forgetful but cooperative and mild mannered. Current COWS score is 6 and CIWA is 14. SN to administer medications as ordered. 1:1 at bedside for safety.
[2018-08-04] MEDS: METHOCARBAMOL 750 MG TABLET PO PRN (20:54)
[2018-08-04] MEDS: NIACIN 500 MG PO SCH (20:54)
[2018-08-04] MEDS: ASPIRIN 81 MG TAB.CHEW PO SCH (20:54)
[2018-08-04] MEDS: IBUPROFEN 600 MG TABLET PO PRN (20:54)
--- NOTE | 2018-08-04 20:54 | NUR ---
PRN ATIVAN 1mg, ROBAXIN & MOTRIN Patient report mild headache, lower back pain is 6/10 on pain scale. PRN Motrin and Robaxin given PO for headache and lower back pain. PRN Ativan 1mg given PO for CIWA between 5-15. Safety measures in place, side rails up x2, bed locked in low position, call light within reach, 1:1 at bedside. Will monitor for effectiveness.
[2018-08-04] MEDS: GUAIFENESIN/DEXTROMETHORPHAN 5 ML UDC PO PRN (20:59)
--- NOTE | 2018-08-04 20:59 | NUR ---
PRN CALLIESIN Patient has an unproductive cough at this time, he states, "I'll take the cough medicine now so I won't be coughing during the night." PRN Robitussin 10mL given as ordered for cough. Safety measures in place, call light within reach, 1:1 at bedside. Will monitor for effectiveness.
[2018-08-04] MEDS: QUETIAPINE FUMARATE 25 MG TABLET PO PRN (21:06)
--- NOTE | 2018-08-04 21:06 | NUR ---
PRN SEROQUEL Patient appears agitated and has begun to walk around the unit with his walker and 1:1 "looking for my dog." Patient believes that his dog is on the unit and insists upon finding his dog in one of the many rooms on the floor. Patient is not aggressive or combative at this time, only disoriented and confused. PRN Seroquel 50mg given PO. Patient was re-directed to his room, he did not argue or attempt to continue searching for his dog. Safety measures in place, side rails up x2, bed locked in low position, call light within reach, 1:1 at bedside. Will monitor for effectiveness.
--- NOTE | 2018-08-04 21:54 | NUR ---
PRN ATIVAN 1mg, ROBAXIN & MOTRIN REASSESSMENT Patient reports that headache has improved, lower back pain has also decreased. PRN Motrin and Robaxin noted to be effective. Patient continues to have anxiety, restlessness, and transient hallucinations. Patient is disoriented and requires constant re-orientation. CIWA is 12 upon reassessment of PRN Ativan 1mg. Safety measures in place, 1:1 at bedside. Will continue to monitor.
--- NOTE | 2018-08-04 21:59 | NUR ---
PRN ROBITUSSIN REASSESSMENT Patient has reports less frequent coughing. PRN Robitussin noted to be effective. Safety measures in place, side rails up x2, bed locked in low position, call light within reach, 1:1 at bedside. Will continue to monitor.
--- NOTE | 2018-08-04 22:06 | NUR ---
PRN SEROQUEL REASSESSMENT Patient appears less agitated and is resting quietly in bed watching television. PRN Seroquel noted to be effective. Safety measures in place, side rails up x2, bed locked in low position, call light within reach, 1:1 at bedside. Will continue to monitor.
[2018-08-05] VITALS: BP 116/79
--- NOTE | 2018-08-05 00:30 | NUR ---
COWS 6, CIWA 12 Patient sleeps intermittently and wakes for 10 minute intervals. Patient remains confused and disoriented but is able to answer questions appropriately at times. Patient verbalizes feeling anxious and restless when he is awake. Patient is tremulous and has transient A/V hallucinations. Current COWS is 6, current CIWA is 12. SN to administer PRN Ativan as ordered. Safety measures in place, 1:1 at bedside.
[2018-08-05] MEDS: LORAZEPAM 1 MG TABLET PO PRN ×2 (00:44→09:22)
--- NOTE | 2018-08-05 00:44 | NUR ---
PRN ATIVAN 1mg Patient has a CIWA of 12; PRN Ativan 1mg given PO for CIWA between 5-15. Safety measures in place, 1:1 at bedside, side rails up x2, bed locked in low position, call light within reach. Will monitor for effectiveness.
--- NOTE | 2018-08-05 01:44 | NUR ---
PRN ATIVAN REASSESSMENT Patient is asleep at this time, respirations even and unlabored. Unable to reassess PRN Ativan at this time. Safety measures in place, side rails up x2, bed locked in low position, 1:1 at bedside, call light within reach. Will continue to monitor.
--- NOTE | 2018-08-05 04:00 | NUR ---
VITALS REFUSED, COWS & CIWA DEFERRED Vitals refused at this time, COWS and CIWA deferred due to patient sleeping; to be assessed and scored while patient is awake. Respirations even and unlabored 16/min. Safety measures in place, 1:1 at bedside, call light within reach. Will continue to monitor.
--- NOTE | 2018-08-05 07:00 | NUR ---
END OF SHIFT Patient is a 62-year-old male admitted on 07/30/18 for ETOH and opiate withdrawal. Patient has completed a 5-day Ativan taper and a 3-day Subutex taper, tolerated well. Patients last COWS was 6 and last CIWA was 12. Patient has PRN Ativan on hand for further signs and symptoms of withdrawal. Patient received PRN Ativan 1mg PO x2 during the shift, noted to be effective. Patient received PRN Robaxin, Motrin, Robitussin, and Seroquel; all noted to be effective. Patient slept for 5 hours, total intake of 2,000mL, void x2, stool x0. Patient is on fall and seizure precautions with not previous history of seizure. Safety measures in place, side rails up x2, bed locked in low position, 1-to-1 at bedside for safety related to unsteady gait and confusion, call light within reach. Will endorse to day shift.
--- NOTE | 2018-08-05 07:27 | NUR ---
Start Of Shift Patient is a 62 year old male who was admitted to [facility] on 07/30/18 for a medically supervised withdrawal from ETOH ( Vodka) and Opiates ( [place]), he has completed a 3 day Subutex taper and modified Ativan taper and continues on PRN Ativan for hallucinations. He has a 1:1 sitter at bedside for safety and unsteady gait. PRN medications given on PM shift : Ativan 1mg PO x2, Seroquel and Robitussin, his last COWS was 6 and CIWA 12 @ 0030. At this time he is asleep in bed, breathing even and unlabored, sitter at bedside. Continue to follow MD plan of care and offer support and encouragement
[2018-08-05 08:00] VITALS: BP 114/78
[2018-08-05 08:59] LABS: BILIRUBIN,DIRECT 0.6 mg/dL (0.0-0.2); BILIRUBIN,TOTAL 1.2 mg/dL (0.2-1.0); CREATININE 1.2 mg/dL (0.6-1.3); POTASSIUM 3.5 mmol/L (3.5-5.1); TOTAL PROTEIN, SERUM 6.6 g/dL (6.4-8.2)
[2018-08-05] MEDS: THIAMINE HCL 100 MG TABLET PO SCH (09:22)
[2018-08-05] MEDS: METOPROLOL 50 MG PO SCH (09:22)
[2018-08-05] MEDS: FOLIC ACID 1 MG TABLET PO SCH (09:22)
[2018-08-05] MEDS: MULTIVITAMINS,THERAPEUTIC TABLET PO SCH (09:22)
[2018-08-05] MEDS: PAROXETINE HCL 10 MG TABLET PO SCH (09:22)
[2018-08-05] MEDS: PANTOPRAZOLE SODIUM 40 MG TABLET.DR PO SCH (09:22)
--- NOTE | 2018-08-05 09:22 | NUR ---
PRN/ CIWA 14 Ativan 1mg PO given per MD order for CIWA 5-15 Patient is still slightly confused about where he is , oriented to , name, date minus 3 days and year he is tremulous bilaterally, anxious and irritable.
--- NOTE | 2018-08-05 10:22 | NUR ---
PRN Reassess Patient is asleep in bed, breathing even and unlabored, 1:1 sitter at bedside, Ativan 1mg PO effective. will continue to monitor
[2018-08-05 12:00] VITALS: BP 111/75
--- NOTE | 2018-08-05 12:12 | NUR ---
COWS 5 CIWA 16 Patient still presents as confused at times about where he is but is able to state his name and and rough date ( Minus 3 days) and year. He is lethargic, irritable and restless and states he " just feels tired ", his memory appears foggy at times. 1:1 sitter at bedside for safety
[2018-08-05] MEDS: ACETAMINOPHEN 325 MG TABLET PO PRN (12:39)
[2018-08-05] MEDS: LACTULOSE 20 G/30 ML LIQUID UDC PO SCH ×2 (12:39→21:59)
[2018-08-05] MEDS: METHOCARBAMOL 750 MG TABLET PO PRN ×2 (12:39→22:07)
[2018-08-05] MEDS: IBUPROFEN 600 MG TABLET PO PRN ×2 (12:40→22:07)
--- NOTE | 2018-08-05 12:40 | NUR ---
PRN Robaxin 750mg PO, Tylenol 650mg PO and Motrin 600mg PO given for back pain 02/17 will reassess Lactulose also given per MD order
[2018-08-05 13:19] LABS: BASOPHILS % (AUTO) 0.8 % (0.0-2.0); EOSINOPHILS # (AUTO) 0.3 K/uL (0.0-0.7); EOSINOPHILS % (AUTO) 7.1 % (0.0-7.0); HEMATOCRIT 41.2 % (36.7-47.1); HEMOGLOBIN 14.1 g/dL (12.5-16.3); LYMPHOCYTES # (AUTO) 1.6 K/uL (20.0-40.0); LYMPHOCYTES % (AUTO) 37.5 % (20.5-51.5); MEAN CORPUSCULAR HEMOGLOBIN 34.7 uug (23.8-33.4); MEAN CORPUSCULAR HGB CONC 34 g/dL (32.5-36.3); MEAN CORPUSCULAR VOLUME 101.3 fL (73.0-96.2); MONOCYTES # (AUTO) 0.9 K/uL (2.0-10.0); MONOCYTES % (AUTO) 19.5 % (0.0-11.0); NEUTROPHILS # (AUTO) 1.5 K/uL (1.8-8.9); NEUTROPHILS % (AUTO) 35.1 % (38.5-71.5); RED BLOOD CELL COUNT(AUTO) 4.07 MIL/uL (4.06-5.63)
[2018-08-05 13:21] LABS: PLATELET COUNT (AUTO) 108 K/uL (152-348); WHITE BLOOD COUNT (AUTO) 4.4 K/uL (3.6-10.2)
--- NOTE | 2018-08-05 13:40 | NUR ---
PRN Reassess Patient is asleep in bed, snoring loudly, appears comfortable, sitter at bedside
[2018-08-05 14:03] LABS: EOSINOPHILS % (MANUAL) 7 % (0-8); LYMPHOCYTES % (MANUAL) 38 % (20-40); MONOCYTES % (MANUAL) 11 % (2-10); NEUTROPHILS % (MANUAL) 42 % (42-75)
[2018-08-05 14:06] LABS: REACTIVE LYMPHOCYTES 2 % (0-0)
[2018-08-05 16:00] VITALS: BP 127/87
--- NOTE | 2018-08-05 16:00 | NUR ---
COWS 7 CIWA 14 Patient still presents as confused at times about where he is but is able to state his name and and rough date ( Minus 3 days) and year. He is lethargic, irritable and restless and states he " just feels tired ", his memory appears foggy at times. 1:1 sitter at bedside for safety
--- NOTE | 2018-08-05 18:49 | NUR ---
End Of Shift Patient is a 62 year old male who was admitted to [facility] on 07/30/18 for a medically supervised withdrawal from ETOH ( Vodka) and Opiates ( [place]), he has completed a 3 day Subutex taper and modified Ativan taper. He has had episodes of confusion and foggy thinking today, but is oriented to name, date of and date minus 3 days, when asked where he is, he sometimes he will answer " I'm at home ", he is on a 1:1 for safety , sitter at bedside. He had a fluid intake of 350ml, 2 voids and 1 BM. PRN medications given this shift : Ativan 1mg PO, Motrin, Robaxin and Tylenol. His last COWS was 7 and CIWA 14 @ 1600. Continue to follow MD plan of care . Endorsed to style advisor.
--- NOTE | 2018-08-05 19:35 | NUR ---
START OF SHIFT NOTE Rcvd report from outgoing nurse. Pt is a 62 y/o male A/O to person, place, and purpose but not time. Pt was admitted for medically supervised withdrawal from ETOH and Opiates. Pt completed a 5 day Ativan and 3 day Subutex taper. Pt has been presenting w/ flushing, fine tremors, sweats, chills, pins and needles, mild visual sensitivity, anxiety, restlessness, depressed mood, and flat affect. Pt rcvd PRN Ativan, Motrin, Robaxin, and Tylenol and were noted effective by outgoing nurse. Last CIWA 14 and COWS 7 @ 1600. Call light is within reach. Pt will continue to be monitored and needs met.
[2018-08-05 20:03] VITALS: BP 111/79
--- NOTE | 2018-08-05 20:05 | NUR ---
CIWA AND COWS ASSESSMENT CIWA 14 and COWS 8. Pt has been presenting w/ flushing, fine tremors, sweats, chills, pins and needles, mild visual sensitivity, anxiety, restlessness, depressed mood, and flat affect. V/S: T:97.6, P;80, RR:14, SPO2:96, BP:111/79.
[2018-08-05] MEDS: ASPIRIN 81 MG TAB.CHEW PO SCH (21:59)
[2018-08-05] MEDS: NIACIN 500 MG PO SCH (21:59)
--- NOTE | 2018-08-05 22:07 | NUR ---
PRN MOTRIN AND ROBAXIN ADMINISTRATION Motrin 600mg and Robaxin 750mg given for back pain and body aches. Pt c/o 5/10 pain. Will reassess pt in 1hr.
--- NOTE | 2018-08-05 23:07 | NUR ---
PRN MOTRIN AND ROBAXIN REASSESSMENT Pt is in bed w/ his eyes closed. Pt' respirations are unlabored and even.
--- NOTE | 2018-08-06 | NUR ---
SHIVANI and SERGIOWA deferred Patient lying in bed. Respiration even and unlabored. Patient with 1:1 at bedside. Will continue to monitor. Addendum: 08/07/18 at 0305 by ARIELLE ZHONG LVN error
--- NOTE | 2018-08-06 | NUR ---
CIWA AND COWS DEFERRED Pt is in bed w/ his eyes closed. Pt's respirations are unlabored and even.
--- NOTE | 2018-08-06 04:11 | NUR ---
CIWA AND COWS DEFERRED Pt is in bed w/ his eyes closed. Pt's respirations are unlabored and even.
--- NOTE | 2018-08-06 07:19 | NUR ---
END OF SHIFT NOTE Endorsed pt to oncoming nurse. Pt is a 62 y/o male A/O to person, place, and purpose but not time. Pt was admitted for medically supervised withdrawal from ETOH and Opiates. Pt completed a 5 day Ativan and 3 day Subutex taper. Pt continued presenting w/ flushing, fine tremors, sweats, chills, pins and needles, mild visual sensitivity, anxiety, restlessness, depressed mood, and flat affect. Pt denies any S/I or H/I. PRN Motrin and Robaxin were given and noted effective. Pts fluid intake was 300ml and he slept for 9hrs. Last CIWA 14 and COWS 8 @ 1999. Call light is within reach.
[2018-08-06 08:00] VITALS: BP 109/62
--- NOTE | 2018-08-06 08:30 | NUR ---
START OF SHIFT Endorse rcvd from ongoing nurse, client is is room, lying on his back, he sounds asleep, easy to awaken, RR 16, non-labored. Last CIWA 14 / 8 @ 1999. PRN Motrin 600mg PO, Robaxin 750mg PO for myalgia. Client slept 9hrs. CPAP at bedside, client is not using it. 1:1 sitter at bedside promoting safety. [place] precautions. Call light within reach. Will continue to monitor.
[2018-08-06] MEDS: METOPROLOL 50 MG PO SCH (09:15)
[2018-08-06] MEDS: PAROXETINE HCL 10 MG TABLET PO SCH (09:15)
[2018-08-06] MEDS: LACTULOSE 20 G/30 ML LIQUID UDC PO SCH ×2 (09:15→20:33)
--- NOTE | 2018-08-06 09:15 | NUR ---
CHARY 5 Client is in bed, he is a/o to name, place, and situation, he believes today is 08/01. He presents with anxiety, agitation, irritability, and fatigue. Schedule am medications administered. Will continue to monitor. 1:1 sitter at bedside. Call light within reach. Client is fully ambulatory.
[2018-08-06] MEDS: PANTOPRAZOLE SODIUM 40 MG TABLET.DR PO SCH (09:16)
[2018-08-06] MEDS: THIAMINE HCL 100 MG TABLET PO SCH (09:16)
[2018-08-06] MEDS: MULTIVITAMINS,THERAPEUTIC TABLET PO SCH (09:16)
[2018-08-06] MEDS: FOLIC ACID 1 MG TABLET PO SCH (09:16)
[2018-08-06] MEDS: [UNRECOGNIZED DRUG - OTHER] TOP PRN (09:16)
[2018-08-06 12:00] VITALS: BP 135/81
--- NOTE | 2018-08-06 12:15 | NUR ---
CIWA 5 / COWS 6 Client presents with anxiety, irritability, hypoactive, tense, and difficulty concentrating. He is somewhat confused, a/o to name, and place, neet to reinforce his present situation. Vital signs WNL's. CN notified. Call light within reach. 1:1 sitter at bedside.
[2018-08-06] MEDS ORDERED: LACT10SO7 PO (15:22)
[2018-08-06 16:55] VITALS: BP 97/73
--- NOTE | 2018-08-06 16:55 | NUR ---
CIWA 8 / COWS 6 Client continues to presents with anxious, irritable mood, flat affect, a/o to name and place, not the time and he is confused over the situation, reinforcement needed. Non-pharmacologic measures rendered. Call ligt within reach. 1:1 sitter at bedside.
--- NOTE | 2018-08-06 19:28 | NUR ---
END OF SHIFT Endorse client to incoming nurse, client is in room, a/o to name and place, not the time and he is confused over the situation, client continues to presents with anxious, irritable mood, flat affect. 1:1 sitter at bedside promoting safety. Last CIWA 6 @ 1700. Client not compliant with group therapy. Client consumed 50-75% of meals. Adequate PO fluid intake 1500mL, void x 3, stool x 3. [place] precautions. Call light within reach.
--- NOTE | 2018-08-06 19:30 | NUR ---
Start of shift note Received report from day shift nurse. Patient is a 62 year old male admitted for ETOH and Opiate withdrawal. Patient completed Subutex and Ativan taper. Patient is on 1:1 for safety. Patient is medically cleared to be discharge tomorrow. Patient did not require PRN medication. Last COWS 6 and CIWA 8. Patient alert and oriented x 2. Patient presents with flat affect , unshaven, disheveled and c/o back pain. Safety measures in place. Will continue to monitor.
[2018-08-06 20:00] VITALS: BP 103/74
--- NOTE | 2018-08-06 20:00 | NUR ---
COWS and CIWA assessment Patient reports anxiety, bilateral tremors, intermittent perspiration and back pain. COWS 5 and CIWA 5.
[2018-08-06] MEDS: NIACIN 500 MG PO SCH (20:31)
[2018-08-06] MEDS: ASPIRIN 81 MG TAB.CHEW PO SCH (20:32)
[2018-08-06] MEDS: diphenhydrAMINE 50 MG CAPSULE PO PRN (20:32)
--- NOTE | 2018-08-06 20:32 | NUR ---
PRN Benadryl administration Patient requests for sleep aid. Will monitor for effectiveness
[2018-08-06] MEDS: GUAIFENESIN/DEXTROMETHORPHAN 5 ML UDC PO PRN (20:38)
--- NOTE | 2018-08-06 20:38 | NUR ---
PRN Robitussin administration Patient has unproductive cough. Will monitor for effectiveness
--- NOTE | 2018-08-06 21:38 | NUR ---
PRN Robitussin re-assessment Patient states Robitussin is helpful and effective. Will continue to monitor
--- NOTE | 2018-08-06 22:00 | NUR ---
PRN Benadryl re-assessment Patient lying in bed with eyes closed. Respiration even and unlabored. Will continue to monitor. 1:1 at bedside.
[2018-08-07] VITALS: BP 100/74
--- NOTE | 2018-08-07 | NUR ---
COWS and CIWA deferred Patient lying in bed. Respiration even and unlabored. Patient with 1:1 at bedside. Will continue to monitor.
[2018-08-07 04:00] VITALS: BP 110/70
--- NOTE | 2018-08-07 04:00 | NUR ---
COWS and CIWA deferred Patient lying in bed. Respiration even and unlabored. Patient with 1:1 at bedside. Will continue to monitor.
--- NOTE | 2018-08-07 07:15 | NUR ---
Start of Shift Note Pt. is a 62 y/o male admitted for the medically managed withdrawal from ETOH, and Opiates. Pt. was placed on Ativan and Subutex tapers to manage withdrawal symptoms which he completed yesterday 08/06/2018. Pt. continues his 1:1 for safety. Pt. is set to be discharge this AM. Received pt. in room. Pt. in bed with eyes closed. No signs of distress noted. Sitter at bed side. Safety measures in place. Will continue to monitor pt.'s behavior for safety.
--- NOTE | 2018-08-07 07:30 | NUR ---
End of shift note Patient slept 7 hours. Fluid intake 855 ml. Voided x 2. BM x 2. Patient is discharging today. He completed Subutex and Ativan taper. Patient is on 1:1 for safety. Patient refused to have the C-Pap on. Per patient he does not want to use it. Scheduled medication given as ordered. PRN Benadryl was given at 2031. Patient had unproductive cough. PRN Robitussin given, effective. Patient alert and oriented x 3. Patient had a shower this morning. Ambulating with steady gait. Patient is on Lactulose and had 2 BM during shift. Last COWS 5 and CIWA 5. Safety measures in place. Will continue to monitor.
[2018-08-07 08:00] VITALS: BP 133/81
[2018-08-07] MEDS: THIAMINE HCL 100 MG TABLET PO SCH (08:18)
[2018-08-07] MEDS: PANTOPRAZOLE SODIUM 40 MG TABLET.DR PO SCH (08:19)
[2018-08-07] MEDS: FOLIC ACID 1 MG TABLET PO SCH (08:19)
[2018-08-07] MEDS: METOPROLOL 50 MG PO SCH (08:19)
[2018-08-07] MEDS: LACTULOSE 20 G/30 ML LIQUID UDC PO SCH (08:19)
[2018-08-07] MEDS: MULTIVITAMINS,THERAPEUTIC TABLET PO SCH (08:19)
[2018-08-07] MEDS: PAROXETINE HCL 10 MG TABLET PO SCH (08:19)
--- NOTE | 2018-08-07 09:28 | NUR ---
Discharge Note Pt. is being discharge per MD order with Rx [facility] . Pt. completed his regiment of Detox medications. Last COWS 5 and CIWA 5 at 0800. Pt. A/O X 4 with no signs of acute distress note and V/S WNL. Pt. currently denies any SI, HI, VH and AH. Pt. educated on s/s of disease process and when to seek medical attention. All D/C paper work signed and placed in blue and black discharge bag along with Home Medications, and personal belongings. Pt. escorted of unit at this time by staff.
== END 2018-08-07 09:28 | disposition other institution (70) | DRG 895 ==
LOC: SRC 20:03
PROVIDERS: ADMIT Family Medicine Addiction Medicine; ATTEND Family Medicine Addiction Medicine
PROC: HZ2ZZZZ Detoxification Services for Substance Abuse Treatment (ICD-10-PCS; principal; 2018-07-30)
PROC: HZ31ZZZ Individual Counseling for Substance Abuse Treatment, Behavioral (ICD-10-PCS; 2018-07-31)
PROC: 5A09357 Assistance with Respiratory Ventilation, Less than 24 Consecutive Hours, Continuous Positive Airway Pressure (ICD-10-PCS; 2018-07-31)
PROC: HZ41ZZZ Group Counseling for Substance Abuse Treatment, Behavioral (ICD-10-PCS; 2018-08-01)
DX: F10.230 Alcohol dependence with withdrawal, uncomplicated (principal); E87.1 Hypo-osmolality and hyponatremia; F11.23 Opioid dependence with withdrawal; Y90.2 Blood alcohol level of 40-59 mg/100 ml; G47.30 Sleep apnea, unspecified; I10 Essential (primary) hypertension; Z82.3 Family history of stroke; Z82.49 Family history of ischemic heart disease and other diseases of the circulatory system; Z81.1 Family history of alcohol abuse and dependence; Z79.82 Long term (current) use of aspirin; Z79.899 Other long term (current) drug therapy; F41.1 Generalized anxiety disorder; K72.90 Hepatic failure, unspecified without coma; R73.9 Hyperglycemia, unspecified; R74.8 Abnormal levels of other serum enzymes; D75.89 Other specified diseases of blood and blood-forming organs; E78.5 Hyperlipidemia, unspecified; E80.7 Disorder of bilirubin metabolism, unspecified
CPT/HCPCS: 36415; 71045; 80307; 80349; 83690; 83735; 84443; 85025; 85610; 86592; 86705; 86803; 87340; 87806; G0480; J2358; J3411; Q0163